=== PATIENT | female | born 1985 | race Caucasian/White ===

== ENCOUNTER 2021-07-10 22:16 | Inpatient (IN) | payer OTHER ==
[~2021-07-10] VITALS: Ht 152.4 cm; Wt 46.1 kg
[~2021-07-10 22:16] MED LIST: AMOCLA875 PO; AMOX500 PO; AZIT250 PO; Amoxicillin500 MG PO; CLIN300 PO; DEPO INJECTION; DESMOPRESS10 MCG/0.3; FLUV50 PT; GLIP5 PT; HYDACE5 PO; HYDGUAL120 PO; MEDR150I; METF500 PT; METO25 PT; MIRALAX17 GM PT; OMEP20ER PO; OMEPRAZOLE MAGNESIUM PT; RXHYDACE PO; SULTRIDS PO; Seroquel Xr50 MG PT
[2021-07-10 23:37] LABS: Source, Urine Catheter
[2021-07-10 23:39] LABS: Bilirubin, Urine Neg (Neg); Blood, Urine 5+ (Neg); Glucose Qualitative, Urine 4+ (Neg); Ketones, Urine Neg (Neg); Leukocyte Esterase, Urine 2+ (Neg); Nitrite, Urine Neg (Neg); Protein, Urine 3+ (Neg); Specific Gravity, Urine 1.015 (1.003-1.022); Urobilinogen, Urine NORM (Normal)
[2021-07-10 23:41] LABS: Hematocrit 56.2 % (33.0-51.0); Mean Corpuscular HGB 27.4 pg (26.0-34.0); Mean Corpuscular HGB Conc 28.5 g/dL (31.5-36.5); Mean Corpuscular Volume 96 fL (80-100); Mean Platelet Volume 13.5 fL (9.1-12.4); Platelet Count 320 K/mm3 (150-400); RDW Coefficient Variation 16.3 % (11.7-14.2); RDW Standard Deviation 56.7 fL (35.1-46.3); Red Blood Cell Count 5.83 M/mm3 (3.80-5.20); White Blood Cell Count 31.12 K/mm3 (4.00-11.30)
[2021-07-10 23:42] LABS: Appearance, Urine Hazy (Clear); Color, Urine Yellow (P-Yellow)
[2021-07-10 23:48] LABS: Bacteria Few /hpf; Red Blood Cells, Urine 0-2 /hpf (0-2); Squamous Epithelial Cells Not Seen /hpf (Few); White Blood Cells, Urine 50-100 /hpf (0-5); Yeast/Fungi Urine Many /hpf
[2021-07-10 23:57] LABS: BAND PERCENT MAN 5 % (0-8); BASOPHILS PERCENT MAN 0 % (0-2); EOSINOPHILS ABSOLUTE MAN 0.31 K/mm3 (0.00-0.68); EOSINOPHILS PERCENT MAN 1 % (0-6); LYMPHOCYTES ABSOLUTE MAN 2.48 K/mm3 (0.84-5.20); LYMPHOCYTES PERCENT MAN 8 % (21-46); MONOCYTES ABSOLUTE MAN 0.93 K/mm3 (0.16-1.47); MONOCYTES PERCENT MAN 3 % (4-13); NEUTROPHILS ABSOLUTE MAN 27.38 K/mm3 (1.96-9.15); SEG NEUTROPHILS PERCENT MAN 83 % (41-73); TOTAL CELLS COUNTED 100
[2021-07-11 00:05] LABS: Albumin, Blood 3.4 g/dL (3.4-5.0); Albumin/Globulin Ratio 0.6 (0.8-1.8); Bilirubin, Total 0.4 mg/dL (0.1-1.0); Bun/Creatinine Ratio 85.5 (12.0-20.0); Calcium, Blood 12.5 mg/dL (8.5-10.1); Creatinine, Blood 1.59 mg/dL (0.40-1.00); Globulin, Blood 5.7 g/dL (2.2-4.0); Total Protein, Blood 9.1 g/dL (6.4-8.2)
[2021-07-11] MEDS ORDERED: [UNRECOGNIZED DRUG - OTHER] (01:58)
[2021-07-11] MEDS ORDERED: FLUVOXAMINE MAL25 M1 PT (01:59)
[2021-07-11] MEDS ORDERED: GLIP5 PT (02:00)
[2021-07-11] MEDS ORDERED: Glucophage 500 mg PO (02:02)
[2021-07-11] MEDS ORDERED: Lopressor 25 mg25 MG PT (02:03)
[2021-07-11] MEDS ORDERED: OMEP20ER PT (02:04)
[2021-07-11] MEDS ORDERED: Miralax PO (02:05)
[2021-07-11] MEDS ORDERED: SEROQUEL50 MG PO (02:07)
[2021-07-11 02:08] LABS: Hematocrit 50.7 % (33.0-51.0); Hemoglobin 14.8 g/dL (11.5-16.0); Mean Corpuscular HGB 27.6 pg (26.0-34.0); Mean Corpuscular HGB Conc 29.2 g/dL (31.5-36.5); Mean Corpuscular Volume 95 fL (80-100); Platelet Count 301 K/mm3 (150-400); RDW Coefficient Variation 15.9 % (11.7-14.2); Red Blood Cell Count 5.36 M/mm3 (3.80-5.20); White Blood Cell Count 30.94 K/mm3 (4.00-11.30)
[2021-07-11 02:24] LABS: Mean Platelet Volume 13.2 fL (9.1-12.4)
[2021-07-11 02:27] LABS: BAND PERCENT MAN 8 % (0-8); BASOPHILS PERCENT MAN 0 % (0-2); EOSINOPHILS PERCENT MAN 0 % (0-6); LYMPHOCYTES ABSOLUTE MAN 1.54 K/mm3 (0.84-5.20); LYMPHOCYTES PERCENT MAN 5 % (21-46); MONOCYTES ABSOLUTE MAN 2.16 K/mm3 (0.16-1.47); MONOCYTES PERCENT MAN 7 % (4-13); MYELOCYTE PERCENT MAN 1 % (0-0); NEUTROPHILS ABSOLUTE MAN 26.91 K/mm3 (1.96-9.15); SEG NEUTROPHILS PERCENT MAN 79 % (41-73); TOTAL CELLS COUNTED 100
[2021-07-11 03:14] LABS: Bun/Creatinine Ratio 85.5 (12.0-20.0); Calcium, Blood 12.2 mg/dL (8.5-10.1); Creatinine, Blood 1.59 mg/dL (0.40-1.00)
[2021-07-11 03:15] LABS: Potassium, Blood 3.9 mmol/L (3.5-5.5)
[2021-07-11 04:09] LABS: Source, Urine Catheter
[2021-07-11 04:13] LABS: Bilirubin, Urine Neg (Neg); Blood, Urine 5+ (Neg); Glucose Qualitative, Urine 4+ (Neg); Ketones, Urine Neg (Neg); Leukocyte Esterase, Urine 3+ (Neg); Nitrite, Urine Neg (Neg); Protein, Urine 2+ (Neg); Specific Gravity, Urine 1.015 (1.003-1.022); Urobilinogen, Urine NORM (Normal)
[2021-07-11 04:27] LABS: Appearance, Urine Cloudy (Clear); Color, Urine Yellow (P-Yellow)
[2021-07-11 04:28] LABS: Bacteria Few /hpf; Red Blood Cells, Urine Rare /hpf (0-2); Squamous Epithelial Cells Not Seen /hpf (Few); White Blood Cells, Urine TNTC /hpf (0-5); Yeast/Fungi Urine Many /hpf
[2021-07-11 04:31] LABS: Glucose, Blood 828 mg/dL (70-99)
[2021-07-11 05:53] LABS: Glucose, Blood 527 mg/dL (70-99)
--- NOTE | 2021-07-11 06:35 | NUR ---
PT ARRIVES TO ICU ROOM 12 FROM ED AT 0220 THIS MORNING. SLIDE TRANSFERRED TO BED FROM [facility]. PT NON VERBAL AND DIFFICULT TO GET PT TO FOLLOW ANY COMMANDS. INSULIN DRIP HAS BEEN TITRATED DOWN TO 3 UNITS PER HOUR. WILL RECHECK BLOOD GLUCOSE LEVEL AND ADJUST ACCORDINGLY. PT HAS INCREASE IN LACTIC ACID LEVEL. SEE LABS FOR DETAILS. PT COMPLETED LR BOLUS PER MD ORDER.
--- NOTE | 2021-07-11 07:00 | NUR ---
ASSUME CARE: I have assumed care of pt. At this time she is restless in bed, insulin and LR running through her midline.
--- NOTE | 2021-07-11 07:06 | NUR ---
PT'S MOTHER CALLS THIS MORNING AND IS VERY DISTRAUGHT ABOUT HER DAUGHTER BEING ILL. UPDATE GIVEN. MOTHER DOES HAVE SOME DIFFICULTY STAYING ON CONVERSATION. CALL MADE TO DR RIVERS THIS AM WITH LABS. ORDERS RECEIVED FOR MAINTAINENCE IVF. INSULIN ON HOLD AT THIS TIME FOR TOO QUICK DROP IN BLOOD GLUCOSE LEVELS. PT DOES REMOVE HER GOWN AND PULL OFF HER OXIMETER. NEEDING TO BE INSTRUCTED TO NOT PULL AT LINES, SENSORS, AND CLOTHING. WILL CONTINUE TO MONITOR PT, AND WILL REPORT OFF TO ONCOMING RN.
[2021-07-11 07:31] LABS: Bun/Creatinine Ratio 80.5 (12.0-20.0); Calcium, Blood 12.9 mg/dL (8.5-10.1); Creatinine, Blood 1.49 mg/dL (0.40-1.00); Potassium, Blood 3.3 mmol/L (3.5-5.5)
[2021-07-11 09:23] LABS: Bun/Creatinine Ratio 84.7 (12.0-20.0); Calcium, Blood 12.1 mg/dL (8.5-10.1); Creatinine, Blood 1.31 mg/dL (0.40-1.00); Potassium, Blood 3.6 mmol/L (3.5-5.5)
--- NOTE | 2021-07-11 10:24 | NUR ---
CONNECTIONS CALL: This RN spoke with pt's employment case manager from [facility] ([phone]) and updated her on pt's status.
[2021-07-11 12:32] LABS: Bun/Creatinine Ratio 78.9 (12.0-20.0); Calcium, Blood 11.7 mg/dL (8.5-10.1); Creatinine, Blood 1.28 mg/dL (0.40-1.00); Potassium, Blood 3.4 mmol/L (3.5-5.5)
[2021-07-11 18:05] LABS: Bun/Creatinine Ratio 77.5 (12.0-20.0); Calcium, Blood 10.6 mg/dL (8.5-10.1); Creatinine, Blood 1.11 mg/dL (0.40-1.00); Potassium, Blood 3.6 mmol/L (3.5-5.5)
--- NOTE | 2021-07-11 18:47 | NUR ---
END OF SHIFT SUMMARY: Insulin titrated off this afternoon. Lantus and medium sliding scale started. Tube feeds started at 20 mls/hr. TwoCal not available at this time; nepro 1.[address] with Dr Levine's approval. Pt independantly mobile in bed. She is sitting up and asking nurse, "What are you doing?" each times cares are performed. Pt's mother at bedside to visit this afternoon. After several attempts of self removing das catheter and saying, "OW!" this RN removed das.
--- NOTE | 2021-07-11 20:00 | NUR ---
ASSUMED CARE OF PT AT 1915. REPORT RECEIVED. PT PRESENTS IN BED. ALERT AND SIMPLE IN RESPONSES. "WHATCHA DOING" AND "HURTS" "SORRY" ARE REPEATED. WILL KEEP CURTAIN OPEN TO ROOM TO ALLOW FOR DIRECT OBSERVATION OF PT FOR HER SAFETY. PT REMOVES HER OXIMETER, AND HER BLOOD PRESSURE CUFF OFTEN. WILL DO SPOT CHECKS. PT HAS NOT VOIDED SINCE HER CATHETER WAS REMOVED EARLIER. DID DO BLADDER SCAN REVEALING ONLY 76 ML URINE. WILL MONITOR.
--- NOTE | 2021-07-12 00:22 | NUR ---
FULL BEDBATH DONE FOR PT WITH LINEN CHANGE. PT KEEPS WITH THE REPETITIVE WORDING OF "WHATCHA DOING" AND HURTS. PT PULLS OFF BLOOD PRESSURE CUFF AND PULLS OFF OXIMETER. AFTER SHE PULLED OF HER WRIST BAND, ANOTHER ONE WAS PLACED ON HER ANKLE. THIS TOOK HER AROUND 5-10 MINUTES TO PULL THAT OFF. IV'S HAVE BEEN SECURED UNDER COBAN TO MAKE IT HARDER TO PULL IV'S OUT. PT DOES NOT REDIRECT WELL IF SHE IS TRYING TO PULL AT LINES.
[2021-07-12 00:42] LABS: Bun/Creatinine Ratio 69.4 (12.0-20.0); Calcium, Blood 10.2 mg/dL (8.5-10.1); Creatinine, Blood 1.11 mg/dL (0.40-1.00); Potassium, Blood 3.4 mmol/L (3.5-5.5)
[2021-07-12 05:51] LABS: Hematocrit 35.6 % (33.0-51.0); Hemoglobin 10.8 g/dL (11.5-16.0); Mean Corpuscular HGB 27.6 pg (26.0-34.0); Mean Corpuscular HGB Conc 30.3 g/dL (31.5-36.5); Mean Corpuscular Volume 91 fL (80-100); Platelet Count 206 K/mm3 (150-400); RDW Coefficient Variation 15.9 % (11.7-14.2); Red Blood Cell Count 3.92 M/mm3 (3.80-5.20); White Blood Cell Count 19.59 K/mm3 (4.00-11.30)
--- NOTE | 2021-07-12 06:24 | NUR ---
PT RESISTS GETTING BLOOD PRESSURES TAKEN. IS ABLE TO ASSIST MODERATELY WITH TURNS IN BED WITH BED CHANGE. PT HAS BEEN INCONTINENT TO URINE TWICE THIS SHIFT. HAVE BEEN DOING Q 1 HOUR ATTEND CHECKS. WILL CONTINUE TO MONITOR PT, AND WILL REPORT OFF TO ONCOMING RN.
[2021-07-12 06:55] LABS: Alanine Aminotransfer (ALT/SGP 47 U/L (12-78); Albumin, Blood 2.5 g/dL (3.4-5.0); Alk Phos 106 U/L (50-136); Aspartate Aminotrans (AST/SGOT 31 U/L (12-37); Bilirubin, Total 0.6 mg/dL (0.1-1.0); Blood Urea Nitrogen 67 mg/dL (8-24); Bun/Creatinine Ratio 67.7 (12.0-20.0); CO2, Blood 23 mmol/L (21-32); Calcium, Blood 10.2 mg/dL (8.5-10.1); Chloride, Blood 134 mmol/L (98-108); Creatinine, Blood 0.99 mg/dL (0.40-1.00); Glomerular Filtration Rate >60 (60-); Glucose, Blood 278 mg/dL (70-99); Potassium, Blood 3.5 mmol/L (3.5-5.5)
[2021-07-12 06:56] LABS: Albumin/Globulin Ratio 0.7 (0.8-1.8); Anion Gap 7 mmol/L (6-16); Globulin, Blood 3.8 g/dL (2.2-4.0); Sodium, Blood 164 mmol/L (136-145)
[2021-07-12 06:57] LABS: Total Protein, Blood 6.3 g/dL (6.4-8.2)
--- NOTE | 2021-07-12 07:00 | NUR ---
ASSUME CARE: I have assumed care of pt. At this time she is resting in bed.
--- NOTE | 2021-07-12 14:47 | NUR ---
FAMILY UPDATE: This RN spoke with pt's mother over the phone and updated her on pt status.
--- NOTE | 2021-07-12 18:51 | NUR ---
END OF SHIFT SUMMARY: Pt restless and pulling at lines today. D5W started this morning. Hypernatremia slowly improving. She continues on lantus and medium sliding scale. This RN attempted to get pt out of bed today, however pt was very resistant and declined. She is mobile in bed and repositions herself without difficulty. BM today.
[2021-07-13 05:31] LABS: BASOPHILS ABSOLUTE AUTO 0.02 K/mm3 (0.00-0.23); BASOPHILS PERCENT AUTO 0 % (0-2); EOSINOPHILS PERCENT AUTO 2 % (0-6); Hematocrit 31.3 % (33.0-51.0); Hemoglobin 9.9 g/dL (11.5-16.0); Mean Corpuscular HGB 27.7 pg (26.0-34.0); Mean Corpuscular HGB Conc 31.6 g/dL (31.5-36.5); Mean Corpuscular Volume 88 fL (80-100); Mean Platelet Volume 12.6 fL (9.1-12.4); Platelet Count 151 K/mm3 (150-400); RDW Coefficient Variation 14.7 % (11.7-14.2); RDW Standard Deviation 47.2 fL (35.1-46.3); Red Blood Cell Count 3.57 M/mm3 (3.80-5.20); White Blood Cell Count 12.24 K/mm3 (4.00-11.30)
[2021-07-13 05:50] LABS: IMMATURE GRAN ABSOLUTE AUTO 0.05 K/mm3 (0.00-0.10); IMMATURE GRAN PERCENT AUTO 0 % (0-1); LYMPHOCYTES ABSOLUTE AUTO 5.43 K/mm3 (0.84-5.20); LYMPHOCYTES PERCENT AUTO 44 % (21-46); MONOCYTES ABSOLUTE AUTO 0.54 K/mm3 (0.16-1.47); MONOCYTES PERCENT AUTO 4 % (4-13); NEUTROPHILS PERCENT AUTO 49 % (41-73)
[2021-07-13 05:55] LABS: Alanine Aminotransfer (ALT/SGP 44 U/L (12-78); Albumin, Blood 2.4 g/dL (3.4-5.0); Albumin/Globulin Ratio 0.7 (0.8-1.8); Alk Phos 88 U/L (50-136); Anion Gap 8 mmol/L (6-16); Aspartate Aminotrans (AST/SGOT 29 U/L (12-37); Bilirubin, Total 0.7 mg/dL (0.1-1.0); Blood Urea Nitrogen 28 mg/dL (8-24); Bun/Creatinine Ratio 35.5 (12.0-20.0); CO2, Blood 24 mmol/L (21-32); Calcium, Blood 9.4 mg/dL (8.5-10.1); Chloride, Blood 119 mmol/L (98-108); Creatinine, Blood 0.79 mg/dL (0.40-1.00); Globulin, Blood 3.5 g/dL (2.2-4.0); Glomerular Filtration Rate >60 (60-); Glucose, Blood 226 mg/dL (70-99); Potassium, Blood 3.2 mmol/L (3.5-5.5); Sodium, Blood 151 mmol/L (136-145); Total Protein, Blood 5.9 g/dL (6.4-8.2)
--- NOTE | 2021-07-13 06:18 | NUR ---
END OF SHIFT SUMMARY: PT IS DEVELOPEMNTALLY DELAYED, ONLY KNOWS A FEW WORDS AND PHRASES LIKE "HURT" "WHAT DOING" "IM SORRY". PT DOES REPEAT THESE WORDS/PHRASES REPEATEDLY. SHE ALSO ASKS CONTINOUSLY WHEN SHE IS GOING HOME. PT DOES MOVE ALL EXTREMITIES WITH EASE AND ABLE TO REPOSITION SELF IN BED. PT GOT AGITATED AND WAS TRYING TO PULL ON POWERGLIDE IV AND GET OUT OF BED - VEST RESTRAINT WAS STARTED TO KEEP PT SAFE. STILL ON RA, NO COUGH, TELE IS OFF BUT VITALS ARE STABLE AT CHECKS. NO BM BUT IS INCONTINENT OF BOTH STOOL AND URINE. PT DOES HAVE A BRIEF ON. PT IS DIFFICULT TO CONSOLE AND REDIRECT WHEN AGITATED.
--- NOTE | 2021-07-13 07:00 | NUR ---
ASSUME CARE: I have assumed care of pt. At this time she is in bed with posy vest in place.
--- NOTE | 2021-07-13 10:35 | NUR ---
PHONE CALL: This RN spoke to patient's mother who demanded RN to tell her what is "exactly wrong" with her daughter "right now". Pt's mother states that she is "tired of being a pill pusher when its not helping". RN informed pt's mother I will have Dr. Frederick contact her with an update.
[2021-07-13] MEDS ORDERED: DDAVP0.1 M1 PT (14:44)
--- NOTE | 2021-07-13 15:23 | NUR ---
DISCHARGE NOTE: Pt discharged home to mother. She was wheeled out via wheelchair by PRODUCTION ENGINEER. Mother was provided verbal and written discharge and medication education. She verbalized understanding and agreement. Powerglide was discontinued without complication prior to discharge.
--- NOTE | 2021-07-15 17:01 | NUR ---
Patient is a [facility] patient who was transferred to [facility] on 07/11/2021 due to hyperosomolar hyperglycemic state. Patient is to discharge- 07/13/2021 with resumption of home health orders. Gathered supporting documentation for resumption (face sheet, discharge order, med list, and H&P) and faxed to [facility] for review. No further interventions required. Marilynn Becerril Referral Liaison
[2021-07-18] MEDS ORDERED: ONDA4ODT SL (12:44)
== END 2021-07-13 15:25 | disposition home or self-care (01) | DRG 871 ==
LOC: ER 22:16 → ICUW 07-11 02:17
PROVIDERS: Emergency Medicine; Family Medicine; Internal Medicine; ADMIT Internal Medicine
DX: B37.7 Candidal sepsis (principal); G93.41 Metabolic encephalopathy; E23.2 Diabetes insipidus; N17.9 Acute kidney failure, unspecified; N39.0 Urinary tract infection, site not specified; E86.0 Dehydration; R13.10 Dysphagia, unspecified; R65.20 Severe sepsis without septic shock; R62.50 Unspecified lack of expected normal physiological development in childhood; Z88.2 Allergy status to sulfonamides; Z91.14 Patient's other noncompliance with medication regimen; Z79.899 Other long term (current) drug therapy; Z79.84 Long term (current) use of oral hypoglycemic drugs; Z87.440 Personal history of urinary (tract) infections; Z93.1 Gastrostomy status
CPT/HCPCS: 36415; 51702; 71045; 80048; 80053; 81001; 82947; 83605; 83690; 84295; 85025; 85027; 87040; 87086; 87106; 93005; 93010; 94760; 96365; 99285-25; A9270; C1751; J0610; J0696; J1650; J1815; J3465; J7030; J7070; J7120

== ENCOUNTER → 2023-11-02 | Outpatient (CLI) | payer OTHER ==
[~2023-11-02] MED LIST changes: +DDAVP0.1 M1 PT; +FLUVOXAMINE MAL25 M1 PT; +Glucophage 500 mg PO; +Lopressor 25 mg25 MG PT; +Miralax PO; +OMEP20ER PT; +ONDA4ODT SL; +SEROQUEL50 MG PO; +[UNRECOGNIZED DRUG - OTHER]
== END | disposition home or self-care (01) ==
LOC: LAB SHORT 13:39 → LAB 13:39
DX: R35.0 Frequency of micturition (principal)
CPT/HCPCS: 87077; 87086; 87186

== ENCOUNTER 2024-04-09 17:33 | Observation (INO) | payer OTHER ==
[~2024-04-09] VITALS: Ht 167.6 cm; Wt 52.9 kg
[~2024-04-09 17:33] MED LIST changes: +FLUVOXAMINE MAL25 M1 PO; -FLUVOXAMINE MAL25 M1 PT; +Lopressor 25 mg25 MG PO; -Lopressor 25 mg25 MG PT; +METF500 PO; -METF500 PT
[2024-04-09] MEDS ORDERED: FLU VACC TS2024-25(6MOS UP)/PF 45 MCG/0.5 ML SYRINGE IM SCH (19:30)
[2024-04-09] MEDS ORDERED: Ondansetron HCl 2 MG / ML 2ML Vial IV PRN (19:30)
[2024-04-09] MEDS ORDERED: Enoxaparin 40 MG/0.4 ML SYR SC SCH (20:00)
[2024-04-09 22:14] VITALS: BP 138/89
[2024-04-10] MEDS ORDERED: Ondansetron 4 MG TAB PO PRN (00:34)
--- NOTE | 2024-04-10 01:04 | NUR ---
THIS HOSPITAL CNA CALLED ON-CALL HOSPITALIST REGARDING MEDICATIONS ORDERED PT-ROUTE IN ERROR. PER T-ORDER THIS HOSPITAL CNA CHANGED THE PT-ROUTE TO PO ROUTE. ALSO THIS HOSPITAL CNA D/C'D OR CANCELLED NPO ORDER AND CHANGED IT TO CONSISTENT CARB DIET ORDER D/T PT HAS HX OF DMII. PER RN BERNY FROM ER, PT HAD MULTIPLE PO FOODS THIS AFTERNOON AT THE ER. ULTRASOUND COORDINATOR NOTIFIED.
--- NOTE | 2024-04-10 01:08 | NUR ---
PT ARRIVED WITH TWO ER STAFF MEMBERS AT 2200. SKIN CHECK COMPLETED WITH TANVIR CONTRERAS AND THIS PRINCIPAL BIOINFORMATICS SPECIALIST. MEDICATION RECONCILIATION COMPLETED BY THIS PRINCIPAL BIOINFORMATICS SPECIALIST. PT IS UNABLE TO PROVIDE HEALTH HX D/T INTELLECTUAL DISABILITY.
[2024-04-10 05:12] VITALS: BP 128/87
[2024-04-10 05:38] LABS: BASOPHILS ABSOLUTE AUTO 0.03 K/mm3 (0.00-0.23); BASOPHILS PERCENT AUTO 0 % (0-2); EOSINOPHILS ABSOLUTE AUTO 0.36 K/mm3 (0.00-0.68); EOSINOPHILS PERCENT AUTO 4 % (0-6); Hematocrit 38.9 % (33.0-51.0); Hemoglobin 12.6 g/dL (11.5-16.0); IMMATURE GRAN ABSOLUTE AUTO 0.03 K/mm3 (0.00-0.10); IMMATURE GRAN PERCENT AUTO 0 % (0-1); LYMPHOCYTES ABSOLUTE AUTO 3.48 K/mm3 (0.84-5.20); LYMPHOCYTES PERCENT AUTO 36 % (21-46); MONOCYTES PERCENT AUTO 7 % (4-13); Mean Corpuscular HGB Conc 32.4 g/dL (31.5-36.5); Mean Corpuscular Volume 90 fL (80-100); Mean Platelet Volume 10.1 fL (9.1-12.4); NEUTROPHILS ABSOLUTE AUTO 5.13 K/mm3 (1.96-9.15); NEUTROPHILS PERCENT AUTO 53 % (41-73); Platelet Count 287 K/mm3 (150-400); RDW Coefficient Variation 13.3 % (11.7-14.2); Red Blood Cell Count 4.34 M/mm3 (3.80-5.20); White Blood Cell Count 9.73 K/mm3 (4.00-11.30)
[2024-04-10 06:20] LABS: Albumin, Blood 3.5 g/dL (3.4-5.0); Bilirubin, Total 0.4 mg/dL (0.1-1.0); Bun/Creatinine Ratio 24.6 (12.0-20.0); Calcium, Blood 10.5 mg/dL (8.5-10.1); Creatinine, Blood 0.69 mg/dL (0.40-1.00); Globulin, Blood 3.5 g/dL (2.2-4.0); Potassium, Blood 4.4 mmol/L (3.5-5.5)
[2024-04-10] MEDS ORDERED: Insulin Human Lispro 100 Units/ML 3ML Syringe SC SCH (07:30)
[2024-04-10] MEDS ORDERED: GlipiZIDE 5 MG Tab PO SCH (07:30)
[2024-04-10] MEDS ORDERED: GlipiZIDE 5 MG Tab PT SCH (07:30)
[2024-04-10 07:36] VITALS: BP 126/75
[2024-04-10] MEDS ORDERED: MetFORMIN HCl 500 mg PT SCH (08:00)
[2024-04-10] MEDS ORDERED: MetFORMIN HCl 500 mg PO SCH (08:00)
[2024-04-10] MEDS ORDERED: Metoprolol Tartrate 25 MG Tab PO SCH (09:00)
[2024-04-10] MEDS ORDERED: Metoprolol Tartrate 25 MG Tab PT SCH (09:00)
[2024-04-10 15:04] VITALS: BP 104/63
--- NOTE | 2024-04-10 18:09 | NUR ---
PT HAS BEEN AOX1 AND COOPERATIVE OF CARE. PT IS A ONE PERSON STANDBY TO RESTROOM AND AMBULATES WELL. PT HAD ORAL DIABETIC MEDICATION PER EMAR LATER IN THE MORNING DUE TO PT SLEEPING SOUNDLY AT THE START OF SHIFT. PT DID NOT EAT LUNCH WELL AND THIS DIESEL TRUCK TECHNICIAN HELD INSULIN DOSE FOR 1130 PT WAS ONLY 168. CBG AT 1721 WAS 66 PT WAS FED DINNER IMMEDIATELY AND HAS AN ORANGE JUICE. WILL HOLD DIABETIC MEDS ON EMAR FOR NOW DR WANG IS AWARE. WILL CONTINUE TO MONITOR CLOSELY.
[2024-04-10 19:06] VITALS: BP 108/76
[2024-04-10] MEDS ORDERED: FluvoxaMINE Maleate 50 MG Tab PO SCH (21:00)
[2024-04-10] MEDS ORDERED: FluvoxaMINE Maleate 50 MG Tab PT SCH (21:00)
[2024-04-10 21:34] VITALS: BP 129/97
--- NOTE | 2024-04-11 03:14 | NUR ---
THIS CLEANING TECHNICIAN CONTACTED , ON-CALL HOSPITALIST D/T INSULIN NOVOLOG ORDER. NEW ORDER INCLUDES SCHEDULED LOW SCALE CORRECTION @2100. NOW ADDITIONAL NEW ORDERS AT THIS TIME.
--- NOTE | 2024-04-11 03:47 | NUR ---
SHIFT SUMMARY NO ACUTE CHANGES/DISTRESS DURING THIS SHIFT. HS B. PRN PO ZOFRAN EFFECTIVE FOR PT C/O ABDOMINAL PAIN. 1:1 SITTER FOR PT EXITING HOSPITAL ROOM W/O ASSISTANCE. BED AT THE LOWEST POSITION, CALL LIGHT W/I REACH. SITTER BY THE BEDSIDE, AND BED ALARM FOR SAFETY.
[2024-04-11 04:24] VITALS: BP 118/101
[2024-04-11] MEDS ORDERED: Acetaminophen 325 MG TABLET PO PRN (05:35)
[2024-04-11 07:11] VITALS: BP 101/63
[2024-04-11] MEDS ORDERED: Insulin Human Lispro 100 Units/ML 3ML Syringe SC SCH (07:30)
[2024-04-11 14:49] VITALS: BP 93/73
--- NOTE | 2024-04-11 17:33 | NUR ---
NO ACUTE CHANGES PT IS A ONE PERSON AOX1. PT HAS SITTER IN ROOM SHE NEEDS REDIRECTED DUE TO NOT UNDERSTANDING THINGS WITH HER DEVELOPMENTAL DELAYS. PT HAS BEEN EATING WELL, BUT DOES NEED TO BE ENCOURAGED TO DRINK. PT HAD A CBG OF 100 AND 1700 DOSE OF METFORMIN WAS HELD. NO DISTRESS NOTED. PT BEING MONITORED CLOSELY.
[2024-04-11 19:48] VITALS: BP 118/74
[2024-04-11] MEDS ORDERED: QUEtiapine Fumarate 50 MG TAB PO SCH (21:00)
[2024-04-11] MEDS ORDERED: Desmopressin Acetate 5 ml Nasal Spray 10mcg/spray SCH (21:00)
--- NOTE | 2024-04-12 03:32 | NUR ---
SHIFT SUMMARY PT CONTINUES TO HAVE A SITTER FOR SAFETY. NO ACUTE EVENTS/CHANGES/DISTRESS DURING THIS SHIFT. PT HAS BEEN RESTING T/O THIS SHIFT. PRN PO ZOFRAN EFFECTIVE FOR C/O STOMACH ACHE. BED AT THE LOWEST POSITION, CALL LIGHT WITHIN REACH.
[2024-04-12 03:53] VITALS: BP 100/59
[2024-04-12 07:39] VITALS: BP 107/62
--- NOTE | 2024-04-12 13:16 | NUR ---
PATIENT MOVED TO ROOM 333 TO BE CLOSER TO HER BROTHER IN ROOM 332. PATIENT WALKED TO ROOM NEW ROOM, STOPPING TO SEE HER BROTHER FOR THE FIRST TIME SINCE THEIR ADMIT. SHE STARTED SMILING SAYING, "HI!" PATTING HIS SHOULDER, HOLDING HIS HAND AND HUGGING HIM. WHEN WE LEFT, SHE STATED, "BYE, BHAVNA!" AND KISSED HIM ON THE FOREHEAD. SHE WAS IMMEDIATELY BECAME MORE CHATTY, REPEATING THE SAME PHRASES SHE HAS BEEN REPEATING, BUT SMILING AND SAYING, "THANK YOU". MABEL REPORTED SHE HAS NOT ATTEMPTED TO EXIT-SEEK TODAY BEFORE OR AFTER MOVING ROOMS.
--- NOTE | 2024-04-12 13:46 | NUR ---
COPY WRITER SICK WITH COVID. COVERING PERSON HERE AT BEDSIDE TO DO A VIDEO ASSESSMENT WITH FACILITY THAT WOULD BE ABLE TO TAKE BOTH LINK AND HER BROTHER. WAS ALSO GIVEN PHONE NUMBER OF USUAL COPY WRITER, KARLA, PHONE NUMBER [phone] EXT [phone].
[2024-04-12] MEDS ORDERED: Polyethylene Glycol 3350 17 gm PO SCH (14:00)
--- NOTE | 2024-04-12 15:37 | NUR ---
PATIENT TO BROTHER'S ROOM TO VISIT. GAVE HIM A HUG AND A KISS ON THE HEAD, STRAIGHTENED HIS GOWN AND SAT DOWN INT HE CHAIR NEXT TO HIM. THEY ARE CURRENTLY WATCHING TV TOGETHER.
[2024-04-12 15:54] VITALS: BP 102/63
--- NOTE | 2024-04-12 17:55 | NUR ---
WHEN ADMINISTERING MEDS, PATIENT PUTS PILLS IN MOUTH, TAKES A VERY SMALL SIP OF WATER AND APPEARS TO BE ALLOWING THEM TO DISSOLVE IN HER MOUTH. WHEN ASKED TO OPEN HER MOUTH TO SEE IF THEY'RE STILL IN HER MOUTH AFTER DRINKING, SHE TURNS HER HEAD TO THE SIDE AND SAYS, "I DON'T WANT TO". PER DR. WANG, OKAY TO CRUSH MEDS, PER PHARMACY PROTOCOL, AND ADMINISTER IN APPLESAUCE.
--- NOTE | 2024-04-12 18:02 | NUR ---
END OF SHIFT SUMMARY: ALERT AND ORIENTED TO SELF, PERSON AND PLACE, BUT NOT CURRENT SITUATION. PLEASANT AND COOPERATIVE WITH MOST CARE. CALLS APPROPRIATELY AND IS ABLE TO ADVOCATE NEEDS EFFECTIVELY. AMBULATION. ELIMINATION. LBM. TAKES MEDS. TELE. PAIN. C / O BACK PAIN UPON WAKING THIS MORNING. PRN APAP ADMINISTERED x1 AND PROVIDED WITH HEATING PAD; NO FURTHER C / O BACK PAIN. 1:1 SITTER DUE TO EXIT-SEEKING BEHAVIORS, THOUGH HAS NOT EXHIBITED THESE BEHAVIORS TODAY AFTER VISITING BROTHER. MOVED ROOMS TO BE NEXT DOOR TO HER BROTHER AND SHE HAS WALKED BETWEEN HIS ROOM AND HER ROOM, BUT HAS NOT ATTEMPTED TO WANDER OUTSIDE OF THESE TWO AREAS. ADMIRALTY LAWYER IN TODAY FOR VIDEO VISIT FOR ASSESSMENT OF FACILITY IN [place], [place] THAT WOULD BE ABLE TO ACCEPT HER AND HER BROTHER, BOTH. DENTAL HYGIENIST ATTEMPTED TO ASSIST WITH ORAL CARE, BUT SHE VEHEMENTLY REFUSED. HYGIENIST RECOMMENDING [facility] FOR SEDATION TO COMPLETE EXTRACTIONS. MIRALAX ADMINISTERED FOR NO BOWEL MOVEMENT SINCE ADMIT. NOTICED SHE WASN'T SWALLOWING PILLS AND ALLOWING THEM TO DISSOLVE IN HER MOUTH AND POSSIBLY SPITTING THEM OUT. OKAY TO CRUSH MEDS PER DR. WANG. PER PHARMACY, ALL ORAL MEDS ARE APPROPRIATE FOR CRUSHING AND ADMINISTER IN APPLESAUCE. BED IN LOWEST POSITION. CALL LIGHT WITHIN REACH. ALL NEEDS MET. REPORT TO ONCOMING NURSE.
[2024-04-12 19:20] VITALS: BP 112/59
[2024-04-13 02:09] VITALS: BP 91/52
--- NOTE | 2024-04-13 03:51 | NUR ---
SHIFT SUMMARY ADMITTED FOR INABILITY TO RETURN TO LIVING SITUATION. FULL CODE. PLACEMENT IS PENDING. SHE IS DEVELOPMENTALY DELAYED. ADA/SOFT BITE SIZE DIET. CRUSH RX IN SAUCE. TYLENOL AND A HEATING PAD GIVEN FOR BACK PAIN. ON RA. INDEPENDENT. NO IV ACCESS. HER BROTHER IS IN THE NEXT ROOM AND WILL BE PLACED WITH HER. SHE HAS 1 TOOTH. SHE IS NOT VERY REDIRECTABLE, BUT SHE IS PLEASANT. SHE WILL COMMUNICATE OCCASIONALY WITH ONLY ONE OR TWO PHRASES SHE KNOWS. SHE DOES NOT RESPOND TO QUESTIONS (ALTHOUGH SHE SEEMS TO TURN AWAY FROM YOU IF THE ANSWER IS "NO"). SHE SEEMS TO DESIRE TO BE NEAR OTHER PEOPLE THOUGH, AND NEVER ALONE IN HER ROOM. I DID ACCQUIRE A RECLINER FOR HER AND PUSHED IT TO HER DOORWAY NEAR ME AND THE CAREER DEVELOPMENT FACILITATOR'S, THIS DID STOP THE WANDERING BEHAVIOR FOR A LONG WHILE. SHE DID NOT SLEEP WELL THIS SHIFT, WAKING FREQUENTLY.
[2024-04-13 07:04] VITALS: BP 96/61
[2024-04-13] MEDS ORDERED: DEXTROMETHORPHAN/BENZOCAINE 1 EACH LOZENGE MT PRN (11:35)
[2024-04-13 14:33] VITALS: BP 145/110
[2024-04-13] MEDS ORDERED: Ascorbic Acid 500 MG Tab PO SCH (17:00)
--- NOTE | 2024-04-13 18:00 | NUR ---
SUMMARY- PT A/O TO SELF AND BROTHER. SAT UP IN CHAIR BY THE DOOR WITH 1:1 SITTER RELATED TO FLIGHT RISK. APPEARED SLEEPY AND NODDING OCC 10 MIN INTERVALS. TOLERATED MOST OF BREAKFAST AND LUNCH AND NOT FELL ASLEEP IN BED AFTER A FEW BITES OF DINNER. PT HAD A DRY COUGH INTERMITTANTLY TODAY. VERBALIZED "I FEEL SOMETHING THERE" IN A SCRATCHY THROAT. STARTED VIT C, BUT DID NOT GIVE CEPACHOL PT DRIFTS OFF TO SLEEP, TO AVOID ASP RISK. PT AMBULATES TO SBA STEADY ON FEET, VOIDS IN BATHROOM. WILL REPORT TO NOC RN.
[2024-04-13 19:17] VITALS: BP 104/54
--- NOTE | 2024-04-14 03:58 | NUR ---
SHIFT SUMMARY ADMITTED FOR INABILITY TO RETURN TO LIVING SITUATION. FULL CODE. PLAN IS FOR PLACEMENT IN [facility] ON 04/19. A&O X SELF. SHE IS NOT REDIRECTABLE. SHE HAS FINALLY SLEPT THIS SHIFT, SHE WAS AWAKE ON MY PREVIOUS NOC SHIFT THROUGHOUT. NO IV ACCESS. NO COUGH NOTED THIS SHIFT. SHE IS VERY PLEASANT. SOFT BITE DIET, I AM STILL CRUSHING HER RX IN APPLESAUCE. HX OF DEVELOPMENTAL DELAY, SPINAL MENINGITIS, DM2.
[2024-04-14 07:10] VITALS: BP 116/68
--- NOTE | 2024-04-14 09:00 | NUR ---
pt sitting up in bed, awake, watching tv at times, is nonverbal, doesn't follow directions, was excited to go next door and see her brother, lungs are clear t/o, resp even and unlabored, on r/a, no cough noted, hrr, no edema noted, ppp+1, cap refill <3 sec, vs stable, afebrile, btx, abd flat soft nontender, voids without diff, skin c/w/d, nicole rogel, call light in reach, sitter in room as she leaves room.
[2024-04-14] MEDS ORDERED: Benzocaine Topical Anesthetic Spray 60GM TOP PRN (13:55)
[2024-04-14] MEDS ORDERED: Benzonatate 100 MG Cap PO SCH (14:00)
[2024-04-14 16:18] VITALS: BP 117/80
--- NOTE | 2024-04-14 18:24 | NUR ---
pt has been taken for a walk out in the [place], and to see her brother, not really eating today, but does take her po meds without diff, no further changes this shift. call light in reach.
[2024-04-14 20:04] VITALS: BP 110/67
--- NOTE | 2024-04-15 05:55 | NUR ---
SHIFT SUMMARY PATIENT IS ALERT AND ORIENTED TO SELF ONLY. FULL CODE. ONE PERSON ASSIST. DEVELOPMENTAL DELAYS. PATIENT IS PLEASANT AND TRIES TO BE COOPERATIVE WITH CARE. PATIENT WILL TURN HEAD AWAY IF SHE IS UNWILLING TO DO SOMETHING. PATIENT SLEPT FOR MOST OF THE NIGHT. THIS RN WILL RELAY ALL INFORMATION TO ONCOMING NURSE. NO ACUTE CHANGES DURING THIS SHIFT.
[2024-04-15 07:06] VITALS: BP 108/60
[2024-04-15 09:48] VITALS: BP 114/71
[2024-04-15 11:33] LABS: Influenza A, PCR NEGATIVE (NEGATIVE); Influenza B, PCR NEGATIVE (NEGATIVE); Resp Syncytial Virus, PCR NEGATIVE (NEGATIVE); SARS-Cov-2 (COVID-19) PCR, MMC NEGATIVE (NEGATIVE)
[2024-04-15 15:36] VITALS: BP 106/80
--- NOTE | 2024-04-15 18:47 | NUR ---
SHIFT SUMMARY PT REFUSED MOST OF MORNING MEDS BUT TOOK ALL OF AFTERNOON MEDS. REPEATEDLY USING CALL LIGHT BUT WHEN ASKED OF NEEDS, PT DID NOT REPORTS ANY NEEDS. STILL WAITING FOR PLACEMENT, CALL LIGHT WITHIN REACH, BED IN LOWEST POSITION.
[2024-04-15 20:04] VITALS: BP 100/74
[2024-04-16 04:44] VITALS: BP 112/70
[2024-04-16 07:04] VITALS: BP 115/73
[2024-04-16 15:10] VITALS: BP 106/70
--- NOTE | 2024-04-16 17:39 | NUR ---
PATIENT UP WITH SBA. 1:1 SITTER AT BEDSIDE DUE TO FLIGHT RISK. VSS, ON RA. APPETITE VERY POOR. PATIENT SLEPT A LOT OF THE DAY, BUT PER REPORT PATIENT HASN'T BEEN SLEEPING WELL SINCE ADMISSION. CONTINENT OF BOWEL/BLADDER. AWAITING [facility] PL[facility] ON THURSDAY.
[2024-04-16 20:41] VITALS: BP 106/66
[2024-04-17 08:14] VITALS: BP 111/81
[2024-04-17] MEDS ORDERED: ASCO500 PO (14:53)
[2024-04-17] MEDS ORDERED: MASOPHEN325 M3 PO (14:53)
[2024-04-17] MEDS ORDERED: DESMOPRESS10 MCG/0.2 (14:55)
[2024-04-17] MEDS ORDERED: MIRALAX11910 PO (14:56)
[2024-04-17] MEDS ORDERED: Seroquel Xr50 MG PO (14:56)
[2024-04-17] MEDS ORDERED: ONDA4 PO (14:56)
[2024-04-17 17:03] VITALS: BP 126/79
--- NOTE | 2024-04-17 17:23 | NUR ---
NO ACUTE CHANGES THIS SHIFT. PATIENT UP IN CHAIR FOR MOST OF THE AFTERNOON. ATE BETTER TODAY, BUT CONTINUES TO NEED ENCOURAGEMENT. CONTINENT OF BOWEL BLADDER. DISCHARGE ORDERS WERE PLACED TODAY FOR DC TO [facility] TOMORROW. WILL NEED MEDICATIONS FAXED TO PHARMACY BEFORE DC. 1:1 SITTER DUE TO CONCERN FOR FLIGHT RISK. PATIENT CALM AND COOPERATIVE WITH CARE. NO NEW CONCERNS THIS SHIFT.
[2024-04-17 19:42] VITALS: BP 108/79
--- NOTE | 2024-04-18 05:23 | NUR ---
SHIFT SUMMARY PT A&O TO SELF AND BROTHER. PT REDIRECTABLE AND PLEASANTLY CONFUSED. PT RECEIVED SCHEDULED MEDICATIONS. PT VSS, NO COMPLAINTS OF CP/PRESSURE OR SOB. PT SPENT MOST OF SHIFT IN BED. PT WILL REFUSE TO SLEEP WITHOUT STAFF AT BEDSIDE AND WILL GET OUT OF BED AND LEAVE ROOM IF UNATTENDTED. INCREASED OBSERVATION UTELIZED. NO ACUTE EVENTS AT THIS TIME. PT LEFT IN A POSITION OF SAFETY WITH FALL PRECAUTIONS IN PLACE AND CALL LIGHT IN REACH.
[2024-04-18 08:37] VITALS: BP 97/66
--- NOTE | 2024-04-18 11:31 | NUR ---
UPDATE PT ALERT TO SELF. PT WALKING HALLS MULTIPLE TIMES WITH SITTER. CARE MANAGEMENT SET UP DISCHARGE TO [facility]. RIDE HERE TO TAKE PATIENT. PACKET WITH DISCHARGE INSTRUCTIONS PROVIDED TO AND ALL PT BELONGINGS. PT TAKEN OUT VIA WC
== END 2024-04-18 11:33 | disposition home or self-care (01) ==
LOC: ER 17:33 → ERHOLD 17:34 → MEDS 17:34 → ERHOLD 17:34 → MEDS 21:54 → ENPENDDIS 04-17 17:24 → MEDS 04-18 11:33
PROVIDERS: Internal Medicine; ADMIT Internal Medicine
DX: F99 Mental disorder, not otherwise specified (principal); R62.50 Unspecified lack of expected normal physiological development in childhood; Z74.1 Need for assistance with personal care; J02.9 Acute pharyngitis, unspecified; R05.9 Cough, unspecified; E11.9 Type 2 diabetes mellitus without complications; I10 Essential (primary) hypertension; Z88.2 Allergy status to sulfonamides; Z79.899 Other long term (current) drug therapy
CPT/HCPCS: 0241U; 36415; 80053; 82947; 85025; 96372; 99284; A9270; G0378; J1650